=== PATIENT | female | born 1935 | race Asian ===

== ENCOUNTER 2020-03-15 11:43 | Inpatient (IN) | payer OTHER, SELFPAY ==
[~2020-03-15] VITALS: Ht 162.6 cm; Wt 56.2 kg
[~2020-03-15 11:43] MED LIST: BUSP5TAB; [UNRECOGNIZED DRUG - OTHER]
[2020-03-15 11:50] VITALS: BP 113/58
--- NOTE | 2020-03-15 12:00 | NUR ---
85 YEAR OLD FEMALE BIBA FROM HOME FOR GENERALIZED WEAKNESS AND SOB X 2 WEEKS. PT STATES SHE DOES NOT HAVE TOO MUCH SOB, BUT BEEN FEELING VERY WEAK. LUNGS CLEAR BL, PLACED ON 15L NRB. O2 SATURATION 95%, RR 22. PT AOX4, BREATHING EVEN AND UNLABORED, SKIN WARM AND DRY. BED IN LOWEST POSITION, LOCKED, BED RAIL UPX1. PMH - CLL ALLERGIES - NKA
--- NOTE | 2020-03-15 12:15 | NUR ---
NOVEL SWAB, RSV, FLU SWAB AND LASHAY SWAB ALL COLLECTED AND SENT TO LAB. PT TOLERATED WELL.
--- NOTE | 2020-03-15 12:23 | NUR ---
RT AT BEDSIDE FOR ABG DRAW.
[2020-03-15 13:01] LABS: HEMATOCRIT 34.9 % (36-48); HEMOGLOBIN 11.3 g/dL (12.0-16.0); MEAN CORPUSCULAR HEMOGLOBIN 30 pg (27-31); MEAN CORPUSCULAR HGB CONC 32 g/dL (33-37); MEAN CORPUSCULAR VOLUME 91.9 fL (80-94); PLATELET COUNT (AUTO) 324 K/uL (140-450)
[2020-03-15 13:30] LABS: LYMPHOCYTES % (MANUAL) 19 % (20-46); MONOCYTES % (MANUAL) 8 % (5-12)
[2020-03-15 13:32] LABS: WHITE BLOOD COUNT (AUTO) 27.2 K/uL (4.8-10.8)
[2020-03-15 13:34] LABS: PROTHROMBIN TIME 9.9 secs (10.8-13.4)
--- NOTE | 2020-03-15 13:34 | NUR ---
PT STILL UNABLE TO URINATE
[2020-03-15 13:37] LABS: LACTATE DEHYDROGENASE 294 U/L (81-234)
[2020-03-15] MEDS ORDERED: AZITHROMYCIN 500 MG in DEXTROSE 5% 250 ML IV ONE (13:45)
[2020-03-15] MEDS ORDERED: DEXAMETHASONE 4 MG/ML VIAL IVP ONE (13:45)
[2020-03-15 13:46] LABS: ASPARTATE AMINOTRANSFERASE 41 U/L (15-37); CHLORIDE 97 mmol/L (98-107); CREATININE 1.1 mg/dL (0.6-1.3); GLUCOSE 103 mg/dL (74-106); SODIUM SERUM 134 mmol/L (136-145); TOTAL BILIRUBIN 0.7 mg/dL (0.0-1.0); UREA NITROGEN, BLOOD 34 mg/dL (7-18)
[2020-03-15 13:55] LABS: C-REACTIVE PROTEIN QUANT 27.4 mg/dL (0.0-0.9)
[2020-03-15] MEDS ORDERED: cefTRIAXone 1,000 MG VIAL ONE (14:08)
--- NOTE | 2020-03-15 14:30 | NUR ---
PT ALERT AND AWAKE, BREATHING EVEN AND UNLABORED. NO DISTRESS NOTED.
[2020-03-15 15:02] LABS: RSV NEGATIVE (NEGATIVE)
[2020-03-15] MEDS ORDERED: AZITHROMYCIN 500 MG INJ VIAL IV ONE (15:02)
[2020-03-15] MEDS ORDERED: MAGNESIUM OXIDE 400 MG TAB PO PRN (15:45)
[2020-03-15] MEDS ORDERED: HYDROcodone/APAP 5/325 MG 1 TAB TAB PO PRN (15:45)
[2020-03-15] MEDS ORDERED: MAG SULF 2000 MG/WATER PREMIX 50 ML IV PRN (15:45)
[2020-03-15] MEDS ORDERED: ACETAMINOPHEN 325 MG TAB PO PRN (15:45)
[2020-03-15] MEDS ORDERED: POTASSIUM CHLORIDE 10 MEQ TABER PO PRN (15:45)
[2020-03-15] MEDS ORDERED: LORazepam 1 MG TAB PO PRN (15:45)
[2020-03-15] MEDS ORDERED: ZOLPIDEM 5 MG TAB PO PRN (15:45)
[2020-03-15] MEDS ORDERED: KCL 20 MEQ/WATER INJ PREMIX 200 ML IV PRN (15:45)
--- NOTE | 2020-03-15 16:47 | NUR ---
PT ALERT AND AWAKE, BREATHING EVEN AND UNLABORED. NO DISTRESS NOTED.
--- NOTE | 2020-03-15 18:35 | NUR ---
PT ALERT AND AWAKE, BREATHING EVEN AND UNLABORED. NO DISTRESS NOTED. PT ALERT AND AWAKE, BREATHING EVEN AND UNLABORED. NO DISTRESS NOTED.
--- NOTE | 2020-03-15 18:56 | NUR ---
TALKED TO DR RAMSAY REGARDING PT UNABLE TO URINATE. STATES TO DO BLADDER SCAN, AND IF URINE THEN STRAIGHT CATH. IF NO URINE THEN START NORMAL SALINE @100ML/HR
[2020-03-15] MEDS ORDERED: remdesivir COMMUNICATION ORDER 1 EA MISC MC PRN (19:10)
--- NOTE | 2020-03-15 19:20 | NUR ---
REPORT GIVEN TO SHILPA MATTA, TRANSFER OF CARE AT THIS TIME.
--- NOTE | 2020-03-15 19:20 | NUR ---
RECEIVED REPORT FROM SARIKA MATTA FOR CONTINUITY OF CARE.
--- NOTE | 2020-03-15 19:40 | NUR ---
PT OBSERVED LAYING IN BED IN NO ACUTE DISTRESS NOTED. BREATHING EVEN AND UNLABORED VIA NC WITH 2 L OF OXYGEN. NO COUGH, SOB OR FEVER NOTED. SHE IS AA&OX 4, ABLE TO VERBALIZE HER NEEDS. LUNG SOUNDS WERE CLEAR A&P, HEART SOUNDS WERE EVEN AND REGULAR. PT WAS OFFERED & ASSITED TO USE THE BATHROOM VIA BED MELO. PT STATED, "i WILL TRY". PT WAS UNABLE TO URINATE AT THIS TIME STATING "I CANT GO MAYBE A LITTLE LATER". PT WILL CONTINUE ON CARDIAC MONITORING, PULSE OXIMETRY AND BP MONITORING. WILL CONTINUE TO MONITOR.
[2020-03-15] MEDS: APIXABAN 2.5 MG TAB PO SCH (21:31)
--- NOTE | 2020-03-15 21:40 | NUR ---
PT LAYING IN BED IN NO ACUTE DISTRESS NOTED. CONTINUES ON CARDIAC MONITORING, PULSE OXIMETRY AND BP MONITORING. PT WAS RE-OFFERED TO USE BATHROOM VIA BEDPAN WAS ASSISTED BUT PT VERBALIZED, " NO I JUST CANT SEEM TO GO RIGHT NOW". BLADDER SCAN DONE PER MD ORDERS. RECORDED 393 ML OF URINE PER SCAN. PT STATES SHE WOULD RATHER URINATE HERSELF INSTEAD OF CATHERIZATION.
--- NOTE | 2020-03-15 22:20 | NUR ---
Patient will be admitted to care of DR. NUNEZ. Admited to TELE. Will go to room 112B. Belongings list completed. Report GIVEN TO MILLIE RN AND ENDORSED MAINTENANCE FLUIDS IF PT DOESN'T URINATE OR TO STRAIGHT CATHERIZATION PER MD ORDERS.
--- NOTE | 2020-03-15 22:22 | NUR ---
PT TAKEN TO ROOM 112B ACCOMPANIED BY SUSHILA MAY VIA VERONIKA ALL COVID PRECAUTIONS IN PLACE.
--- NOTE | 2020-03-15 22:30 | NUR ---
ADMITTED 85 Y/O FEMALE FROM HOME, TRANSFERRED VIA GURNEY FROM ER. AOX4, W/ 2L NC O2 SAT 96%-97%, NO SOB, DENIES PAIN, RAC 20 G, INTACT, V/S TAKEN, MRSA SWAB TAKEN, ASSESSMENT DONE, FALL PROTOCOL IN PLACE, SAFETY MEASURES IN PLACE, DROPLET ISO OBSERVED AT ALL TIMES, KEPT COMFORTABLE, CALL LIGHT WITHIN REACH.
[2020-03-16] VITALS: BP 100/56
--- NOTE | 2020-03-16 | NUR ---
ASKED MD IF WE CAN DOWNGRADE PT TO MS. DR. MCNAMARA AWARE AND AGREED. WILL CONTINUE TO MONITOR.
--- NOTE | 2020-03-16 | NUR ---
V/S TAKEN AND RECORDED, NO SOB, CALL LIGHT WITHIN REACH.
--- NOTE | 2020-03-16 02:00 | NUR ---
PT ASLEEP, RESPIRATION EVEN AND UNLABORED, CALL LIGHT WITHIN REACH.
[2020-03-16 04:00] VITALS: BP 98/52
--- NOTE | 2020-03-16 04:00 | NUR ---
V/S TAKEN, NO SOB, CALL LIGHT WITHIN REACH.
--- NOTE | 2020-03-16 07:02 | NUR ---
PT IS IN STABLE CONDITION, CONTINUE ON 2L NC, NO SOB, NO DISTRESS, KEPT CLEAN, DRY AND COMFORTABLE, CALL LIGHT WITHIN REACH.
--- NOTE | 2020-03-16 07:20 | NUR ---
RECEIVED REPORT FROM TUBE MAKING MACHINE OPERATOR RN FOR CONTINUITY OF CARE. PATIENT ASLEEP IN BED. RESPIRATORY EVEN AND UNLABORED WITH 2L NC. O2 SAT 96%. SKIN WARM AND DRY, INTACT. IV SITE TO RIGHT AC 20G. ABDOMEN SOFT, NON TENDER. NO ACUTE DISTRESS NOTED AT THIS TIME. SAFETY MEASURES IN PLACE, WILL CONTINUE TO MONITOR.
--- NOTE | 2020-03-16 07:44 | NUR ---
PT IS ON BEDPAN, PT SAID THAT SHE IS CURRENTLY URINATING, PT WILL PRESS THE CALL LIGHT WHEN SHE IS DONE SHE SAID, CALL LIGHT WITHIN REACH. NO SOB.
[2020-03-16 08:00] VITALS: BP 91/54
--- NOTE | 2020-03-16 08:10 | NUR ---
URINE SAMPLE COLLECTED, ONLY 20ML URINE OUTPUT. PATIENT HAS TROUBLE URINATE. O2 SAT 88-89% IN RA. 93% WITH 2L NC. SAFETY MEASURES IN PLACE, CALL LIGHT WITHIN REACH. WILL CONTINUE TO MONITOR.
[2020-03-16 08:33] LABS: HEMATOCRIT 33.5 % (36-48); HEMOGLOBIN 11.1 g/dL (12.0-16.0); MEAN CORPUSCULAR HEMOGLOBIN 30 pg (27-31); MEAN CORPUSCULAR HGB CONC 33 g/dL (33-37); MEAN CORPUSCULAR VOLUME 91.3 fL (80-94); PLATELET COUNT (AUTO) 325 K/uL (140-450); RED BLOOD CELL COUNT(AUTO) 3.67 MIL/uL (4.20-5.40); RED CELL DISTRIBUTION WIDTH 12.9 % (11.6-13.7)
[2020-03-16] MEDS: DOCUSATE SODIUM 100 MG GELCAP PO SCH (08:48)
[2020-03-16] MEDS: PANTOPRAZOLE 40 MG INJ VIAL IVP SCH (08:48)
[2020-03-16] MEDS: busPIRone 5 MG TAB PO SCH (08:48)
[2020-03-16] MEDS: DEXAMETHASONE 4 MG/ML VIAL IVP SCH (08:48)
[2020-03-16] MEDS: APIXABAN 2.5 MG TAB PO SCH ×2 (08:49→20:27)
--- NOTE | 2020-03-16 08:50 | NUR ---
SCHEDULED MEDICATIONS GIVEN. EDUCATION PROVIDED. ENCOURAGED PATIENT TO TAKE DEEP BREATH. VERBALIZED UNDERSTANDING. SAFETY MEASURES IN PLACE, CALL LIGHT WITHIN REACH. WILL CONTINUE TO MONITOR.
[2020-03-16 08:57] LABS: ALBUMIN 2.6 g/dL (3.4-5.0); ANION GAP 17.1 (8-16); ASPARTATE AMINOTRANSFERASE 35 U/L (15-37); CHLORIDE 96 mmol/L (98-107); CHOL/HDL RATIO 6.8 (1-4.5); CREATININE 0.9 mg/dL (0.6-1.3); GLUCOSE 125 mg/dL (74-106); HDL CHOLESTEROL 33 mg/dL (40-60); LDL (CALC) 162 mg/dL (60-100); LIPASE 303 U/L (73-393); PHOSPHORUS 5.3 mg/dL (2.5-4.9); POTASSIUM 5.1 mmol/L (3.5-5.1); SODIUM SERUM 132 mmol/L (136-145); TOTAL BILIRUBIN 0.5 mg/dL (0.0-1.0); TRIGLYCERIDES 142 mg/dL (30-150); UREA NITROGEN, BLOOD 34 mg/dL (7-18)
--- NOTE | 2020-03-16 08:59 | NUR ---
PATIENT HAS BEEN SCREENED AND CATEGORIZED HIGH NUTRITION RISK. PATIENT WILL BE SEEN WITHIN 1-2 DAYS OF ADMISSION. 03/16/20-03/17/[address]
[2020-03-16 09:54] LABS: WHITE BLOOD COUNT (AUTO) 24.1 K/uL (4.8-10.8)
--- NOTE | 2020-03-16 10:50 | NUR ---
SOCIAL WORK NOTE: Patient's Orientation Unable To Assess Information Provided By ISABEL CINDA - DAUGHTER Comments SW WAS UNABLE TO MEET PATIENT AT BEDSIDE. SW COMPLETED ASSESSMENT WITH PATIENT'S DAUGHTER ISABEL AND LEFT VM WITH PATIENT'S OTHER DAUGHTER KELLI AGUERO. Installation Engineer, Realtionship and Phone Number KELLI AGUERO DAUGHTER [phone] ISABEL LOO DAUGHTER [phone] Healthcare Power of Telecasting Engineer No Does Patient Have a POLST No Identifying Problems No Social Work Triggers Is A Social Work Consult Needed No Mandate Report Filed No Explanation Of Identifying Problems PATIENT IS AN 85-YEAR-OLD FEMALE ADMITTED FOR COVID. PATIENT HAS PMHX OF MUSCLE SPASMS AND LEUKEMIA. PATIENT'S DAUGHTER REPORTED NO HISTORY OF MENTAL HEALTH OR SUBSTANCE ABUSE. Admitted From Home Pre-Admission Level Of Functioning Status Independent/Ambulatory Prior Resources/Services Used In Last 12 Months No Prior Resources Used Prior DME No Prior DME Used Dialysis Comments N/A Living Situation Lives With Family House Other Living Situation/Comment PATIENT'S DUAGHTER REPORTED THAT PATIENT LIVES WITH DAUGHTER AND GRANDCHILDREN. Patient Had Caregiver No Home Support No Caregiver Issues Financial Issues No Known Financial Issue Referral To The Financial Counselor Needed No Factors/Needs No D/C Needs Identified Explanation And Or Other Factors Affecting/Possible DC Needs PATIENT'S DAUGHTER REPORTED THAT SHE WILL ARRANGE TRANSPORTATION HOME. Pt/Rep Participated In Discharge Plan Yes Patient/Family Agress With Discharge Plan Yes Discharge Plan Comments TENTATIVE DISCHARGE PLAN IS FOR PATIENT TO RETURN HOME. DC Plan Status Initiated
--- NOTE | 2020-03-16 11:06 | NUR ---
PATIENT SLEEPING WITH SUPINE POSITION. RESPIRATORY EVEN AND UNLABORED. SAFETY MEASURES IN PLACE, WILL CONTINUE TO MONITOR.
[2020-03-16 12:00] VITALS: BP 102/51
[2020-03-16 12:30] LABS: MONOCYTES % (MANUAL) 6 % (5-12)
[2020-03-16 12:32] LABS: LYMPHOCYTES % (MANUAL) 17 % (20-46)
--- NOTE | 2020-03-16 12:56 | NUR ---
FIRST DOES OF REMDESIVIR GIVEN VIA IVPB. EDUCATION PROVIDED. TOLERATED WELL. PATIENT DENIES PAIN OR SOB. SAFETY MEASURES IN PLACE, CALL LIGHT WITHIN REACH. WILL CONTINUE TO MONITOR.
[2020-03-16] MEDS ORDERED: remdesivir CLINICAL MONITORING 1 EA MISC MC PRN (13:00)
[2020-03-16] MEDS ORDERED: REMDESIVIR (EUA) 200 MG in NACL 0.9% 100 ML IV SCH (13:00)
--- NOTE | 2020-03-16 14:20 | NUR ---
DISCHARGE PLANNING: [facility] OF [facility] AUTH IS [id number]. Addendum: 03/16/20 at 1449 by Donya Mclean CM SAAD CROCKETT: FAXED CLINICALS TO [facility] Addendum: 03/18/20 at 1437 by Donya Mclean CM SAAD CROCKETT: FOLLOWED UP WITH GATO AT [facility] [phone] SHE HAS SENT OUT THE REFERRAL FOR HOME 02 TO [facility]. THE OXYGEN WILL BE DELIVERED TO BEDSIDE TODAY. [facility] IS STILL PENDING.
[2020-03-16] MEDS ORDERED: AZITHROMYCIN 500 MG in DEXTROSE 5% 250 ML IV SCH (15:00)
[2020-03-16 15:19] LABS: APPEARANCE,URINE CLOUDY (CLEAR); BILIRUBIN,URINE NEGATIVE (NEGATIVE); BLOOD, URINE 1+ (NEGATIVE); COLOR,URINE YELLOW (YELLOW); LEUKOCYTE ESTERASE ,URINE 3+ (NEGATIVE); NITRITE, URINE NEGATIVE (NEGATIVE); UGLUCOSE NEGATIVE (NEGATIVE)
--- NOTE | 2020-03-16 15:53 | NUR ---
03/16/20 RD INITIAL ASSESSMENT COMPLETED PLEASE REFER TO NUTRITION ASSESSMENT UNDER CARE ACTIVITY FOR ESTIMATED NUTRITIONAL NEEDS. 1. CONTINUE MECHANICAL SOFT DIET TOLERATED 2. ENSURE BID 3. ENCOURAGE PO INTAKE >50% 4. RD TO FOLLOW-UP 2-3 DAYS, HIGH RISK MEGAN WILLIAMSON, RD
[2020-03-16 16:00] VITALS: BP 97/57
--- NOTE | 2020-03-16 16:34 | NUR ---
PATIENT RESTING IN BED WITH SUPINE POSITION. PATIENT IS ABLE TO TOLERATE IN ROOM AIR. ALTERNATIVE TO WEAR NASAL CANNULA AND TAKE OFF. INSTRUCTED PATIENT TO PUT OXYGEN BACK ON WHENEVER SHE FEELS SOB, VERBALIZED UNDERSTANDING. WILL CONTINUE TO MONITOR.
--- NOTE | 2020-03-16 17:23 | NUR ---
EMPTY BED MELO WITH YELLOWISH CLOUDY URINE. INFORMED PATIENT REGARDING UTI, ENCOURAGED PATIENT TO TAKE FLUID TO KEEP HYDRATION. VERBALIZED UNDERSTANDING OF THE TEACHINGS. WILL CONTINUE TO MONITOR.
[2020-03-16] MEDS: NACL 0.9% 1,000 ML IV SCH (17:55)
[2020-03-16 19:12] LABS: URINE AMORPHOUS URATE 1+ /HPF (None Seen); WBC,URINE 16-25 (MOD) /HPF (0-5)
--- NOTE | 2020-03-16 19:20 | NUR ---
ENDORSED PATIENT TO CLIP LOADING MACHINE ADJUSTER RN FOR CONTINUITY OF CARE. PATIENT IN STABLE CONDITION.
--- NOTE | 2020-03-16 19:21 | NUR ---
RECEIVED BEDSIDE REPORT FROM DAY SHIFT NURSE. PT IN BED RESTING. AAOX4, ON BEDREST, ABLE TO MAKE NEEDS KNOWN. RESPIRATIONS EVEN AND UNLABORED TO O2 2LPM/NC. NO S/SX OF DISTRESS NOTED. DROPLET PRECAUTIONS OBSERVED AT ALL TIMES. ABDOMEN IS SOFT AND NON-TENDER. SKIN IS WARM, DRY, AND INTACT. PT WITH IV ACCESS ON RIGHT AC G20 PATENT AND INTACT. IVF INFUSING WELL. PT DENIES ANY PAIN OR DISCOMFORT AT THIS TIME. NO REQUESTS MADE. PT KEPT COMFORTABLE. SAFETY MEASURES IN PLACE. CALL LIGHT WITHIN REACH. WILL CONTINUE TO MONITOR.
[2020-03-16 20:00] VITALS: BP 106/56
--- NOTE | 2020-03-16 20:27 | NUR ---
VS STABLE. SCHEDULED MEDS GIVEN ORDERED. PT ON O2 2LPM/NC. NOT IN DISTRESS. DENIES ANY PAIN OR DISCOMFORT AT THIS TIME. NO REQUESTS MADE. SAFETY MEASURES IN PLACE. CALL LIGHT WITHIN REACH. WILL CONTINUE TO MONITOR.
--- NOTE | 2020-03-16 22:14 | NUR ---
PT IN BED RESTING WITH HOB ELEVATED. O2 IN PLACE. PT DENIES ANY PAIN OR DISCOMFORT AT THIS TIME. NO REQUESTS MADE. SAFETY MEASURES IN PLACE. CALL LIGHT WITHIN REACH. WILL CONTINUE TO MONITOR.
--- NOTE | 2020-03-17 00:19 | NUR ---
ROUNDS MADE. PT IN BED SLEEPING. NO S/SX OF DISTRESS NOTED. PT KEPT COMFORTABLE. SAFETY MEASURES IN PLACE. CALL LIGHT WITHIN REACH. WILL CONTINUE TO MONITOR.
--- NOTE | 2020-03-17 02:16 | NUR ---
PT ASLEEP. VISIBLE CHEST RISE AND FALL NOTED. NO S/SX OF PAIN OR DISTRESS NOTED. PT KEPT COMFORTABLE. SAFETY MEASURES IN PLACE. CALL LIGHT WITHIN REACH. WILL CONTINUE TO MONITOR.
[2020-03-17 04:00] VITALS: BP 103/52
--- NOTE | 2020-03-17 04:16 | NUR ---
VS STABLE. PT IN BED RESTING. O2 IN PLACE. PT NOT IN DISTRESS. DENIES ANY PAIN OR DISCOMFORT. NO REQUESTS MADE. SAFETY MEASURES IN PLACE. CALL LIGHT WITHIN REACH. WILL CONTINUE TO MONITOR.
--- NOTE | 2020-03-17 07:49 | NUR ---
ENDORSED TO DAYSHIFT NURSE FOR CONTINUITY OF CARE
[2020-03-17 08:13] LABS: HEMATOCRIT 33.6 % (36-48); HEMOGLOBIN 10.9 g/dL (12.0-16.0); MEAN CORPUSCULAR HEMOGLOBIN 30 pg (27-31); MEAN CORPUSCULAR HGB CONC 33 g/dL (33-37); MEAN CORPUSCULAR VOLUME 91.6 fL (80-94); PLATELET COUNT (AUTO) 344 K/uL (140-450); RED BLOOD CELL COUNT(AUTO) 3.67 MIL/uL (4.20-5.40); RED CELL DISTRIBUTION WIDTH 12.7 % (11.6-13.7)
[2020-03-17] MEDS: NACL 0.9% 1,000 ML IV SCH (08:42)
[2020-03-17] MEDS: DEXAMETHASONE 4 MG/ML VIAL IVP SCH (09:24)
[2020-03-17] MEDS: busPIRone 5 MG TAB PO SCH (09:25)
[2020-03-17] MEDS: DOCUSATE SODIUM 100 MG GELCAP PO SCH (09:25)
[2020-03-17] MEDS: PANTOPRAZOLE 40 MG INJ VIAL IVP SCH (09:25)
--- NOTE | 2020-03-17 09:25 | NUR ---
SCHEDULED MORNING MEDICATIONS GIVEN. EDUCATION PROVIDED. PATIENT TOLERATED WELL AND VERBALIZED UNDERSTANDING. PATIENT RESTING IN BED COMFORTABLY WITH NO ACUTE DISTRESS NOTED. SAFETY MEASURES IN PLACE, WILL CONTINUE TO MONITOR.
[2020-03-17 09:27] LABS: ALBUMIN 2.5 g/dL (3.4-5.0); ANION GAP 12.4 (8-16); ASPARTATE AMINOTRANSFERASE 29 U/L (15-37); CARBON DIOXIDE 26.5 mmol/L (21-32); CHLORIDE 100 mmol/L (98-107); GLUCOSE 129 mg/dL (74-106); LIPASE 375 U/L (73-393); PHOSPHORUS 4.3 mg/dL (2.5-4.9); POTASSIUM 4.9 mmol/L (3.5-5.1); SODIUM SERUM 134 mmol/L (136-145); TOTAL BILIRUBIN 0.4 mg/dL (0.0-1.0); UREA NITROGEN, BLOOD 43 mg/dL (7-18)
[2020-03-17] MEDS: APIXABAN 2.5 MG TAB PO SCH ×2 (09:27→21:12)
[2020-03-17 12:02] LABS: WHITE BLOOD COUNT (AUTO) 26.6 K/uL (4.8-10.8)
[2020-03-17 12:04] LABS: LYMPHOCYTES % (MANUAL) 40 % (20-46); MONOCYTES % (MANUAL) 5 % (5-12)
--- NOTE | 2020-03-17 12:18 | NUR ---
CRITICAL LAB: [facility]
[2020-03-17] MEDS: REMDESIVIR (EUA) 100 MG in NACL 0.9% 100 ML IV SCH (13:11)
[2020-03-17 16:00] VITALS: BP 104/61
--- NOTE | 2020-03-17 16:30 | NUR ---
FIRST DOSE OF ROCEPHIN GIVEN VIA IVPB, EDUCATION PROVIDED REGARDING THE INDICATION OF THE MEDICATION. PATIENT VERBALIZED UNDERSTANDING.
--- NOTE | 2020-03-17 16:50 | NUR ---
STRAIGHT CATHETER INSERTED AND 700 CC ORANGE COLOR COLLECTED, URINE SAMPLE COLLECTED AND WILL SEND TO LAB. PATIENT TOLERATED THE PROCEDURE WELL. SAFETY MEASURES IN PLACE, CALL LIGHT WITHIN REACH. WILL CONTINUE TO MONITOR.
[2020-03-17 19:11] LABS: APPEARANCE,URINE HAZY (CLEAR); BILIRUBIN,URINE NEGATIVE (NEGATIVE); BLOOD, URINE NEGATIVE (NEGATIVE); COLOR,URINE YELLOW (YELLOW); LEUKOCYTE ESTERASE ,URINE NEGATIVE (NEGATIVE); NITRITE, URINE NEGATIVE (NEGATIVE); PH,URINE 5.5 (5.0-9.0); UGLUCOSE NEGATIVE (NEGATIVE)
--- NOTE | 2020-03-17 19:30 | NUR ---
ENDORSED PATIENT TO TEMPORARY STAFF ACCOUNTANT RN FOR CONTINUITY OF CARE. PATIENT IN STABLE CONDITION.
--- NOTE | 2020-03-17 20:00 | NUR ---
RECEIVED PATIENT AWAKE IN BED. PT RECEIVING 2L O2 VIA NC. NO S/S OF DISTRESS NOTED AT THIS TIME. NO SOB, PATIENT DENIES DISCOMFORT. PT REPORTS INTERMITTENT COUGH. BED LOWERED WITH CALL LIGHT WITHIN REACH. WILL CONTINUE TO MONITOR
--- NOTE | 2020-03-17 21:12 | NUR ---
ADMINISTERED SCHEDULED MED. PT TOLERATED WELL
--- NOTE | 2020-03-18 03:54 | NUR ---
PATIENT ASLEEP IN BED. NO S/S OF DISTRESS NOTED
[2020-03-18 04:00] VITALS: BP 108/57
[2020-03-18] MEDS: NACL 0.9% 1,000 ML IV SCH (05:03)
--- NOTE | 2020-03-18 07:30 | NUR ---
PT REPORT GIVEN TO AM NURSE
[2020-03-18 08:50] LABS: HEMATOCRIT 31.8 % (36-48); HEMOGLOBIN 10.5 g/dL (12.0-16.0); MEAN CORPUSCULAR HEMOGLOBIN 30 pg (27-31); MEAN CORPUSCULAR HGB CONC 33 g/dL (33-37); MEAN CORPUSCULAR VOLUME 91.2 fL (80-94); PLATELET COUNT (AUTO) 341 K/uL (140-450); RED BLOOD CELL COUNT(AUTO) 3.48 MIL/uL (4.20-5.40); RED CELL DISTRIBUTION WIDTH 12.9 % (11.6-13.7)
[2020-03-18] MEDS: APIXABAN 2.5 MG TAB PO SCH ×2 (09:06→20:35)
[2020-03-18] MEDS: DEXAMETHASONE 4 MG/ML VIAL IVP SCH (09:06)
[2020-03-18] MEDS: DOCUSATE SODIUM 100 MG GELCAP PO SCH (09:07)
[2020-03-18] MEDS: PANTOPRAZOLE 40 MG INJ VIAL IVP SCH (09:07)
[2020-03-18] MEDS: busPIRone 5 MG TAB PO SCH (09:09)
--- NOTE | 2020-03-18 09:10 | NUR ---
SCHEDULED MORNING MEDICATIONS GIVEN. EDUCATION PROVIDED, PATIENT TOLERATED THE PROCEDURE WELL AND VERBALIZED UNDERSTANDING OF THE TEACHINGS. SAFETY MEASURES IN PLACE, WILL CONTINUE TO MONITOR.
--- NOTE | 2020-03-18 10:02 | NUR ---
REPORTED TO DR. NUNEZ THAT PATIENT'S WBC IS 29.5. DR. NUNEZ STATED THAT REPORT TO HIM UNLESS WBC > 40,000, ENDORSE TO THE NURSED WHO TAKE CARE OF THIS PATIENT. WILL FOLLOW.
[2020-03-18 10:03] LABS: WHITE BLOOD COUNT (AUTO) 29.5 K/uL (4.8-10.8)
[2020-03-18 10:04] LABS: LYMPHOCYTES % (MANUAL) 34 % (20-46); MONOCYTES % (MANUAL) 11 % (5-12)
[2020-03-18 10:10] LABS: ALBUMIN 2.3 g/dL (3.4-5.0); ANION GAP 11.5 (8-16); ASPARTATE AMINOTRANSFERASE 24 U/L (15-37); CARBON DIOXIDE 25.5 mmol/L (21-32); CHLORIDE 105 mmol/L (98-107); CREATININE 0.8 mg/dL (0.6-1.3); GLUCOSE 105 mg/dL (74-106); LIPASE 527 U/L (73-393); SODIUM SERUM 138 mmol/L (136-145); TOTAL BILIRUBIN 0.3 mg/dL (0.0-1.0); UREA NITROGEN, BLOOD 33 mg/dL (7-18)
--- NOTE | 2020-03-18 11:35 | NUR ---
INCENTIVE SPIROMETER PROVIDED, INSTRUCTED THE PATIENT HOW TO USE IT AND PATIENT IS ABLE TO USE IS PROPERLY. PATIENT RESTING IN BED COMFORTABLY WITH NO ACUTE DISTRESS. SAFETY MEASURES IN PLACE, WILL CONTINUE TO MONITOR.
[2020-03-18 12:00] VITALS: BP 102/59
[2020-03-18] MEDS: REMDESIVIR (EUA) 100 MG in NACL 0.9% 100 ML IV SCH (13:04)
--- NOTE | 2020-03-18 13:05 | NUR ---
ASSISTED PATIENT TO WALK TO THE RESTROOM, PATIENT TOLERATED OK. REMDESIVIR GIVEN. EDUCATION PROVIDED, SAFETY MEASURES IN PLACE, WILL CONTINUE TO MONITOR.
--- NOTE | 2020-03-18 16:33 | NUR ---
ROCEPHIN GIVEN VIA IVPB, EDUCATION PROVIDED. VERBALIZED UNDERSTANDING. INFORMED PATIENT REGARDING THE NUTRITION STATUS, ENCOURAGED PATIENT TO INCREASE ORAL INTAKE SUCH SMOOTHIES AND ICE CREAM ETC TO GET ENOUGH NUTRITION. PATIENT VERBALIZED WILL TRY WHEN GET HOME. PATIENT IN STABLE CONDITION WITH 2L NC. WILL CONTINUE TO MONITOR.
--- NOTE | 2020-03-18 16:49 | NUR ---
03/18/20 RD INITIAL ASSESSMENT COMPLETED PLEASE REFER TO NUTRITION ASSESSMENT UNDER CARE ACTIVITY FOR ESTIMATED NUTRITIONAL NEEDS. 1. CONTINUE MECHANICAL SOFT DIET TOLERATED 2. RECOMMEND GELATO THRIVE 3. ENCOURAGE PO INTAKE >50% 4. RECOMMEND ENTERAL NUTRITION FOR POOR APPETITE IF ALIGNS WITH PTS WISHES 5. RD TO FOLLOW-UP 2-3 DAYS, HIGH RISK MEGAN WILLIAMSON, [place]
--- NOTE | 2020-03-18 17:22 | NUR ---
OXYGEN TANK BEEN DELIVERED, HOME OXYGEN WILL BE DELIVER IN 1-[address] NUNEZ, PATIENT NOT BE READY TO BE DISCHARGED, NEED TO FINISH FULL COURSE OF THE REMDESIVIR. FILE CLERK DATA ENTRY DARREL MADE AWARE.
--- NOTE | 2020-03-18 19:20 | NUR ---
ENDORSED PATIENT TO BIBLICAL STUDIES PROFESSOR RN FOR CONTINUITY OF CARE. PATIENT IN STABLE CONDITION.
--- NOTE | 2020-03-18 19:21 | NUR ---
RECEIVED REPORT FROM DAY SHIFT NURSE. PT IN BED RESTING. PT AAOX4 AND ABLE TO MAKE NEEDS KNOWN. PT ON O2 2LPM/NC. PT NOT IN DISTRESS. ABDOMEN IS SOFT AND NON-TENDER, ACTIVE BOWEL SOUNDS NOTED. SKIN IS WARM, DRY, AND INTACT. PT WITH IV ACCESS ON RIGHT FOREARM G22 IN PLACE, IVF INFUSING WELL. PT DENIES ANY PAIN OR DISCOMFORT AT THIS TIME. NO REQUESTS MADE. POC DISCUSSED WITH PT, PT VERBALIZED UNDERSTANDING. PT KEPT COMFORTABLE. SAFETY MEASURES IN PLACE, CALL LIGHT WITHIN REACH, WILL CONTINUE TO MONITOR.
[2020-03-18 20:00] VITALS: BP 95/45
--- NOTE | 2020-03-18 20:35 | NUR ---
VS STABLE. O2 IN PLACE. PT NOT IN DISTRESS. SCHEDULED MEDS GIVEN. PT DENIES ANY PAIN OR DISCOMFORT AT THIS TIME. NO REQUESTS MADE. PT KEPT COMFORTABLE. SAFETY MEASURES IN PLACE. CALL LIGHT WITHIN REACH. WILL CONTINUE TO MONITOR.
--- NOTE | 2020-03-18 22:09 | NUR ---
ROUNDS MADE. PT IN BED RESTING AND WATCHING TV. O2 IN PLACE. PT DENIES ANY DISTRESS OR DIFFICULTY BREATHING. NO REQUESTS MADE. PT KEPT COMFORTABLE. SAFETY MEASURES IN PLACE. CALL LIGHT WITHIN REACH. WILL CONTINUE TO MONITOR.
--- NOTE | 2020-03-19 00:08 | NUR ---
ROUNDS MADE. PT ASLEEP WITH HOB ELEVATED. O2 IN PLACE. PT NOT IN DISTRESS. NO S/SX OF PAIN OR DISCOMFORT NOTED. PT KEPT COMFORTABLE. SAFETY MEASURES IN PLACE. CALL LIGHT WITHIN REACH. WILL CONTINUE TO MONITOR.
--- NOTE | 2020-03-19 02:14 | NUR ---
PT ASLEEP WITH HOB ELEVATED. VISIBLE CHEST RISE AND FALL NOTED. PT NOT IN DISTRESS. O2 IN PLACE. NO S/SX OF PAIN OR DISCOMFORT NOTED. PT KEPT COMFORTABLE. SAFETY MEASURES IN PLACE. CALL LIGHT WITHIN REACH. WILL CONTINUE TO MONITOR.
[2020-03-19 04:00] VITALS: BP 107/53
--- NOTE | 2020-03-19 04:07 | NUR ---
VITAL SIGNS STABLE. PT IN BED RESTING. O2 IN PLACE. PT NOT IN DISTRESS. PT DENIES ANY PAIN OR DISCOMFORT AT THIS TIME. NO REQUESTS MADE. KEPT COMFORTABLE. SAFETY MEASURES IN PLACE. CALL LIGHT WITHIN REACH. WILL CONTINUE TO MONITOR.
--- NOTE | 2020-03-19 07:30 | NUR ---
ENDORSED TO DAY SHIFT NURSE FOR CONTINUITY OF CARE
[2020-03-19 08:00] VITALS: BP 105/57
[2020-03-19] MEDS: DOCUSATE SODIUM 100 MG GELCAP PO SCH ×2 (09:00→09:37)
[2020-03-19 09:06] LABS: LACTATE DEHYDROGENASE 209 IU/L (119-226)
[2020-03-19] MEDS: DEXAMETHASONE 4 MG/ML VIAL IVP SCH (09:37)
[2020-03-19] MEDS: PANTOPRAZOLE 40 MG INJ VIAL IVP SCH (09:37)
[2020-03-19] MEDS: busPIRone 5 MG TAB PO SCH (09:37)
[2020-03-19] MEDS: APIXABAN 2.5 MG TAB PO SCH ×2 (09:40→21:50)
[2020-03-19 09:55] LABS: ALBUMIN 2.1 g/dL (3.4-5.0); ANION GAP 6.3 (8-16); ASPARTATE AMINOTRANSFERASE 24 U/L (15-37); BASOPHILS % (AUTO) 0.1 % (0.0-2.0); CHLORIDE 110 mmol/L (98-107); CREATININE 0.6 mg/dL (0.6-1.3); GLUCOSE 81 mg/dL (74-106); HEMATOCRIT 29.6 % (36-48); HEMOGLOBIN 9.7 g/dL (12.0-16.0); LIPASE 517 U/L (73-393); LYMPHOCYTES % (AUTO) 69.5 % (20.5-51.1); MEAN CORPUSCULAR HEMOGLOBIN 30 pg (27-31); MEAN CORPUSCULAR HGB CONC 33 g/dL (33-37); MEAN CORPUSCULAR VOLUME 91.2 fL (80-94); MONOCYTES # (AUTO) 1.1 K/uL (0.8-1.0); MONOCYTES % (AUTO) 3.7 % (1.7-9.3); NEUTROPHILS # (AUTO) 7.7 K/uL (1.8-7.7); NEUTROPHILS % (AUTO) 26.7 % (42.2-75.2); PHOSPHORUS 2.4 mg/dL (2.5-4.9); PLATELET COUNT (AUTO) 302 K/uL (140-450); POTASSIUM 3.3 mmol/L (3.5-5.1); RED BLOOD CELL COUNT(AUTO) 3.25 MIL/uL (4.20-5.40); RED CELL DISTRIBUTION WIDTH 13.2 % (11.6-13.7); SODIUM SERUM 138 mmol/L (136-145); TOTAL BILIRUBIN 0.3 mg/dL (0.0-1.0); UREA NITROGEN, BLOOD 18 mg/dL (7-18)
[2020-03-19 10:26] LABS: WHITE BLOOD COUNT (AUTO) 28.8 K/uL (4.8-10.8)
[2020-03-19] MEDS: REMDESIVIR (EUA) 100 MG in NACL 0.9% 100 ML IV SCH (13:03)
[2020-03-19 16:00] VITALS: BP 110/52
--- NOTE | 2020-03-19 19:30 | NUR ---
RECEIVED PT. AAOX4 , NID - O2 SAT WNL . - W/ 2LPM/NC . IV SITE INTACT AND PATENT . SAFETY MEASURES IN PLACE - CALL LIGHT WITHIN REACH . PLAN OF CARE DISCUSSED AND VERBALIZE UNDERSTANDING . WILL CONT. TO MONITOR .
[2020-03-19 20:00] VITALS: BP 113/66
--- NOTE | 2020-03-19 22:00 | NUR ---
NO COMPLAIN MADE . DENIES ANY PAIN . O2 SAT WNL .
--- NOTE | 2020-03-20 | NUR ---
MADE ROUNDS , NO S/SX OF ACUTE DISTRESS NOTED . CALL LIGHT WITHIN REACH .
[2020-03-20 04:00] VITALS: BP 106/43
--- NOTE | 2020-03-20 04:00 | NUR ---
O2 SAT WNL . NO S/SX OF ACUTE DISTRESS NOTED .
--- NOTE | 2020-03-20 06:00 | NUR ---
NO COMPLAIN MADE - O2 SAT WNL . - WILL ENDORSE TO AM SHIFT TO WEAN OFF THE PT . ON O2 FOR ASSESS THE GOAL 90 % TO 92 % ON RA .
--- NOTE | 2020-03-20 07:50 | NUR ---
ENDORSED - PT - STABLE
[2020-03-20 08:00] VITALS: BP 107/50
[2020-03-20] MEDS: DOCUSATE SODIUM 100 MG GELCAP PO SCH (08:54)
[2020-03-20] MEDS: APIXABAN 2.5 MG TAB PO SCH ×2 (08:54→20:59)
[2020-03-20] MEDS: DEXAMETHASONE 4 MG/ML VIAL IVP SCH (08:54)
[2020-03-20] MEDS: busPIRone 5 MG TAB PO SCH (08:54)
[2020-03-20] MEDS: PANTOPRAZOLE 40 MG INJ VIAL IVP SCH (08:55)
--- NOTE | 2020-03-20 08:55 | NUR ---
SCHEDULED MEDICATIONS DUE GIVEN. WILL CONTINUE TO MONITOR.
[2020-03-20 09:40] LABS: HEMATOCRIT 30.3 % (36-48); MEAN CORPUSCULAR HEMOGLOBIN 30 pg (27-31); MEAN CORPUSCULAR HGB CONC 33 g/dL (33-37); MEAN CORPUSCULAR VOLUME 91.5 fL (80-94); PLATELET COUNT (AUTO) 306 K/uL (140-450); RED BLOOD CELL COUNT(AUTO) 3.32 MIL/uL (4.20-5.40)
[2020-03-20 09:42] LABS: ALBUMIN 2.3 g/dL (3.4-5.0); ANION GAP 10.2 (8-16); ASPARTATE AMINOTRANSFERASE 25 U/L (15-37); CARBON DIOXIDE 24.6 mmol/L (21-32); CHLORIDE 108 mmol/L (98-107); CREATININE 0.6 mg/dL (0.6-1.3); GLUCOSE 80 mg/dL (74-106); LIPASE 485 U/L (73-393); PHOSPHORUS 2.3 mg/dL (2.5-4.9); POTASSIUM 3.8 mmol/L (3.5-5.1); SODIUM SERUM 139 mmol/L (136-145); TOTAL BILIRUBIN 0.3 mg/dL (0.0-1.0); UREA NITROGEN, BLOOD 19 mg/dL (7-18)
--- NOTE | 2020-03-20 10:30 | NUR ---
PATIENT SITTING IN BED TALKING ON THE PHONE. NO DISTRESS NOTED. CONDITION UNCHANGED. WILL CONTINUE TO MONITOR.
[2020-03-20 11:23] LABS: WHITE BLOOD COUNT (AUTO) 26.3 K/uL (4.8-10.8)
[2020-03-20 11:24] LABS: LYMPHOCYTES % (MANUAL) 69 % (20-46); MONOCYTES % (MANUAL) 3 % (5-12)
[2020-03-20] MEDS: REMDESIVIR (EUA) 100 MG in NACL 0.9% 100 ML IV SCH (13:09)
--- NOTE | 2020-03-20 13:09 | NUR ---
SCHEDULED MEDICATIONS DUE GIVEN. WILL CONTINUE TO MONITOR.
[2020-03-20 16:00] VITALS: BP 106/55
--- NOTE | 2020-03-20 16:11 | NUR ---
SCHEDULED MEDICATIONS DUE GIVEN. WILL CONTINUE TO MONITOR.
--- NOTE | 2020-03-20 19:20 | NUR ---
RECEIVED BEDSIDE REPORT FROM DAY SHIFT NURSE. PATIENT IS AWAKE, ALERT, AND COOPERATIVE. RESPIRATION EVEN UNLABORED ON 2L NC O2. NO DISTRESS NOTED. SKIN IS WARM AND DRY. IV PATENT AND INTACT. PLAN OF CARE WAS DISCUSSED. ALL SAFETY MEASURES IN PLACE. BED IS AT LOW POSITION. CALL LIGHT WITHIN REACH. WILL CONTINUE TO MONITOR.
--- NOTE | 2020-03-20 19:27 | NUR ---
GAVE REPORT TO PICTURE PAINTER NURSE FOR CONTINUITY OF CARE. PATIENT IN STABLE CONDITION.
[2020-03-20 20:00] VITALS: BP 111/61
--- NOTE | 2020-03-20 20:45 | NUR ---
ALL SCHEDULED MEDS WERE GIVEN PER ORDER. NO ASE NOTED. WILL CONTINUE TO MONITOR
--- NOTE | 2020-03-20 23:23 | NUR ---
CHECKED PATIENT. PATIENT SLEEPING RESPIRATION EVEN UNLABORED ON 2L NC O2. NO DISTRESS NOTED. WILL CONTINUE TO MONITOR.
--- NOTE | 2020-03-21 01:55 | NUR ---
PLASMA TRANSFUSION STARTED
--- NOTE | 2020-03-21 02:40 | NUR ---
PLASMA TRANSFUSION DONE. NO TRANSFUSION REACTION NOTED. WILL CONTINUE TO MONITOR.
--- NOTE | 2020-03-21 03:00 | NUR ---
PLACED PATIENT ON ROOM AIR. PATIENT IS SATING 94-99% WITH NO DISTRESS NOTED. WILL CONTINUE TO MONITOR
[2020-03-21 04:00] VITALS: BP 125/69
--- NOTE | 2020-03-21 04:42 | NUR ---
PATIENT COMPLAINED OF HEADACHE 3. PRN TYLENOL GIVEN PER ORDER. WILL CONTINUE TO MONITOR
--- NOTE | 2020-03-21 08:10 | NUR ---
PROVIDED PATIENT BREAKFAST TRAY.
[2020-03-21] MEDS: DOCUSATE SODIUM 100 MG GELCAP PO SCH (08:47)
[2020-03-21] MEDS: PANTOPRAZOLE 40 MG INJ VIAL IVP SCH (08:47)
[2020-03-21] MEDS: busPIRone 5 MG TAB PO SCH (08:47)
[2020-03-21] MEDS: DEXAMETHASONE 4 MG/ML VIAL IVP SCH (08:48)
[2020-03-21] MEDS: APIXABAN 2.5 MG TAB PO SCH (08:50)
--- NOTE | 2020-03-21 10:20 | NUR ---
MADE ROUNDS. PATIENT IS TALKING ON THE PHONE. NO DISTRESS NOTED. WILL CONTINUE TO MONITOR
--- NOTE | 2020-03-21 11:37 | NUR ---
AMBULATE PATIENT TO THE BATHROOM. TOLERATED IT WELL WITH NO DISTRESS NOTED. CHECKED O2. PATIENT O2 93% WILL CONTINUE TO MONITOR
--- NOTE | 2020-03-21 11:37 | NUR ---
ENDORSED PATIENT TO [facility] FOR CONTINUITY OF CARE.
[2020-03-21] MEDS ORDERED: ACET-1182 PO (15:27)
[2020-03-21 16:00] VITALS: BP 99/60
--- NOTE | 2020-03-21 16:48 | NUR ---
Discharged instruction given and understood. Patient seen by MD, prescription given. patient to follow up with PCP within one week and for home medication. Patient left with portable home o2. left in stable condition, IV d/c.
[2020-03-22 06:10] LABS: LD1 FRACTION 30 % (17-32); LD3 FRACTION 18 % (17-27); LD4 FRACTION 5 % (5-13); LD5 FRACTION 5 % (4-20)
== END 2020-03-21 17:14 | disposition home or self-care (01) | DRG 177 ==
LOC: MED 11:43 → MTU 15:42
PROVIDERS: ADMIT Hospitalist; ATTEND Hospitalist
PROC: XW033E5 Introduction of Remdesivir Anti-infective into Peripheral Vein, Percutaneous Approach, New Technology Group 5 (ICD-10-PCS; 2020-03-16)
PROC: XW13325 Transfusion of Convalescent Plasma (Nonautologous) into Peripheral Vein, Percutaneous Approach, New Technology Group 5 (ICD-10-PCS; principal; 2020-03-21)
DX: U07.1 COVID-19 (principal); J12.89 Other viral pneumonia; J96.01 Acute respiratory failure with hypoxia; J96.02 Acute respiratory failure with hypercapnia; N17.9 Acute kidney failure, unspecified; E87.1 Hypo-osmolality and hyponatremia; C91.10 Chronic lymphocytic leukemia of B-cell type not having achieved remission; N39.0 Urinary tract infection, site not specified; F32.9 Major depressive disorder, single episode, unspecified; D63.8 Anemia in other chronic diseases classified elsewhere; Z90.710 Acquired absence of both cervix and uterus
CPT/HCPCS: 36415; 36600; 71045; 80053; 81001; 81003; 82550; 82728; 82803; 83036; 83605; 83615; 83625; 83690; 83735; 83880; 84100; 84484; 84550; 85025; 85379; 85384; 85610; 85730; 86140; 86886; 86900; 86901; 87040; 87081; 87086; 87420; 87804; 93005; 96374; 99291; C9113; J0456; J0696; J1100; J7060; P9017; U0003